=== PATIENT | female | born 1980 | race Caucasian/White ===

== ENCOUNTER 2017-08-11 16:24 | Emergency (ER) | payer OTHER ==
[~2017-08-11] VITALS: Ht 170.2 cm; Wt 81.5 kg
[~2017-08-11 16:24] MED LIST: AZIT-57 PO; [UNRECOGNIZED DRUG - OTHER]
[2017-08-11 16:30] VITALS: TEMP 36.4; Ht 170.2 cm; Wt 81.5 kg
[2017-08-11] MEDS ORDERED: PHEN10TA PO (16:48)
--- NOTE | 2017-08-11 16:51 | EMERGENCY ROOM VISIT NOTE ---
History First contact with patient: 16:33 Chief Complaint: HYPERTENSION Stated Complaint: HIGH BLOOD PRESSURE, DIZZY History of Present Illness The patient is a 36 year old female who presents to the Emergency Room with complaints of dizziness and high blood pressure. She felt dizzy at work one week prior. She works at [employer] and so went to medical and they took her blood pressure which was in the 140's/110's. They recommended she came to the ER due to her history of cardiomyopathy however she declined. That night she started having nasal congestion, cough, increasing fatigue, dizziness and ear itching. She went to urgent care 4 days ago and diagnosed with viral illness. She has been taking an OTC cold medication since then containing phenylephrine and acetaminophen. Today she again she was getting very dizzy at work so went to medical and her blood pressure was in the 160's/110's. She was advised again to come to the ER and on this occasion decided to come. Her dizziness is worse on standing and walking around, she does not get it with head movements while in bed. She feels it is more light headedness or loss of balance than the room spinning. She denies any fevers, rash or neck stiffness. She denies any head trauma She does note having a history of migraines and uses imitrex approximately once/ week on average. She has never had vertiginous migraines. She has not had a migraine with this recent dizziness. Mother has meniere's disease. No personal or family history of POTS. Her older sister (by 14 years) has high blood pressure. No heart disease at a young age. Review of Systems All systems reviewed and otherwise negative other than HPI Past Medical/Surgical History Medical Problems: (1) H/O peripartum cardiomyopathy (2) PSOC Surgical Problems: (1) H/O tubal ligation Family History Cancer Diabetes mellitus Heart disease Hypertension Mother - Meniere's disease Social History Smoking Status: Never Smoker Marital Status: single Housing Status: lives with family Occupation Status: employed Current/Historical Medications Scheduled PRN Meclizine HCl (Meclizine HCl), 1 TAB PO TID PRN for dizziness Physical Exam Vital Signs Date Time Temp Pulse Resp B/P (MAP) Pulse Ox O2 Delivery O2 Flow Rate FiO2 08/11/17 19:12 78 16 133/90 98 08/11/17 18:18 79 139/100 82 165/105 89 144/110 08/11/17 18:18 79 16 139/100 98 Room Air 08/11/17 17:31 95 08/11/17 16:30 36.4 84 16 156/108 99 Room Air Physical Exam General Appearance: WD/WN, no apparent distress Head: normocephalic, atraumatic Eyes: normal inspection, PERRL, EOMI ENT: normal ENT inspection, hearing grossly normal, TMs normal, pharynx normal Neck: supple, no JVD, trachea midline Respiratory/Chest: chest non-tender, lungs clear, normal breath sounds, no respiratory distress, no accessory muscle use Cardiovascular: regular rate, rhythm, no edema, no murmur, normal peripheral pulses Abdomen / GI: normal bowel sounds, non tender, soft Back: no CVA tenderness Extremities: no calf tenderness, normal capillary refill, no pedal edema 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 There is no pneumothorax, pleural effusion, focal airspace consolidation or overt pulmonary edema. The bones of the chest appear grossly intact. IMPRESSION: No acute process. The above report was generated using voice recognition software. It may contain grammatical, syntax or spelling errors. Electronically signed by: Uriel Chowdhury M.D. 08/11/2017 5:53 PM Dictated Date/Time: 08/11/2017 5:52 PM Laboratory Results 08/11/17 17:15 Red Blood Count 4.01, Mean Corpuscular Volume 91.3, Mean Corpuscular Hemoglobin 29.9, Mean Corpuscular Hemoglobin Concent 32.8, Mean Platelet Volume 9.2, Neutrophils (%) (Auto) 58.2, Lymphocytes (%) (Auto) 35.0, Monocytes (%) (Auto) 5.2, Eosinophils (%) (Auto) 1.4, Basophils (%) (Auto) 0.1, Neutrophils # (Auto) 5.34, Lymphocytes # (Auto) 3.21, Monocytes # (Auto) 0.48, Eosinophils # (Auto) 0.13, Basophils # (Auto) 0.01 08/11/17 17:15 Test 08/11/17 17:00 08/11/17 17:15 Urine Color YELLOW Urine Appearance CLOUDY (CLEAR) Urine pH 5.5 (4.5-7.5) Urine Specific [place] 1.014 (1.000-1.030) Urine Protein NEG (NEG) Urine Glucose (UA) NEG (NEG) Urine Ketones NEG (NEG) Urine Occult Blood NEG (NEG) Urine Nitrite NEG (NEG) Urine Bilirubin NEG (NEG) Urine Urobilinogen NEG (NEG) Urine Leukocyte Esterase TRACE (NEG) Urine WBC (Auto) 10-30 /hpf (0-5) Urine RBC (Auto) 0-4 /hpf (0-4) Urine Hyaline Casts (Auto) 0 /lpf (0-5) Urine Epithelial Cells (Auto) >30 /lpf (0-5) Urine Bacteria (Auto) 1+ (NEG) Urine Test NEG (NEG) White Blood Count 9.18 K/uL (4.8-10.8) Red Blood Count 4.01 M/uL (4.2-5.4) Hemoglobin 12.0 g/dL (12.0-16.0) Hematocrit 36.6 % (37-47) Mean Corpuscular Volume 91.3 fL (80-100) Mean Corpuscular Hemoglobin 29.9 pg (25-34) Mean Corpuscular Hemoglobin Concent 32.8 g/dl (32-36) Platelet Count 310 K/uL (130-400) Mean Platelet Volume 9.2 fL (7.4-10.4) Neutrophils (%) (Auto) 58.2 % Lymphocytes (%) (Auto) 35.0 % Monocytes (%) (Auto) 5.2 % Eosinophils (%) (Auto) 1.4 % Basophils (%) (Auto) 0.1 % Neutrophils # (Auto) 5.34 K/uL (1.4-6.5) Lymphocytes # (Auto) 3.21 K/uL (1.2-3.4) Monocytes # (Auto) 0.48 K/uL (0.11-0.59) Eosinophils # (Auto) 0.13 K/uL (0-0.5) Basophils # (Auto) 0.01 K/uL (0-0.2) RDW Standard Deviation 44.2 fL (36.4-46.3) RDW Coefficient of Variation 13.2 % (11.5-14.5) Immature Granulocyte % (Auto) 0.1 % Immature Granulocyte # (Auto) 0.01 K/uL (0.00-0.02) Anion Gap 7.0 mmol/L (3-11) Est Creatinine Clear Calc Drug Dose 126.2 ml/min Estimated GFR () 131.6 Estimated GFR (Non- 113.6 BUN/Creatinine Ratio 16.4 (10-20) Calcium Level 9.1 mg/dl (8.5-10.1) Total Bilirubin 0.2 mg/dl (0.2-1) Aspartate Amino Transf (AST/SGOT) 22 U/L (15-37) Alanine Aminotransferase (ALT/SGPT) 35 U/L (12-78) Alkaline Phosphatase 57 U/L (45-117) Troponin I < 0.015 ng/ml (0-0.045) Pro-B-Type Natriuretic Peptide 65 pg/ml (0-450) Total Protein 8.0 gm/dl (6.4-8.2) Albumin 3.9 gm/dl (3.4-5.0) Globulin 4.1 gm/dl (2.5-4.0) Albumin/Globulin Ratio 1.0 (0.9-2) Medications Administered Medications (Trade) Dose Ordered Sig/Marily Route Start Time Stop Time Status Last Admin Dose Admin Acetaminophen (Tylenol Tab) 650 mg NOW STAT PO 08/11/17 17:08 08/11/17 17:09 DC 08/11/17 17:27 650 MG Meclizine HCl (Antivert Tab) 25 mg NOW STAT PO 08/11/17 18:18 08/11/17 18:19 DC 08/11/17 18:27 25 MG ECG Indication: other Rate (beats per minute): 74 Rhythm: normal sinus Findings: no acute ischemic change Change: no significant change ED Course Complete history and physical was performed by myself The patient was discussed with Dr Tang who separately The patient was reassessed on multiple occasions and her dizziness appeared to improve after meclizine given Her labs and imaging were discussed with her and she was discharged in a stable condition. Medical Decision Prior records/ancillary studies reviewed. Triage Nursing notes reviewed. The patient's history was concerning for dizziness and vertigo. Differential diagnosis: Etiologies such as benign positional vertigo, dehydration, hypovolemia, anemia, tumor, infection, hypoglycemia, electrolyte abnormalities, cardiac sources, intracerebral event, toxicologic, neurologic, as well as others were entertained. Physical examination: As above. No pathologic nystagmus. ER treatment provided: IV hydration with normal saline, [] ml. [] On reassessment the patient felt well. Diagnostics interpretation by me: ECG: Normal sinus rhythm without ischemic change or evidence of dysrhythmia. The labs revealed a normal CBC and chemistry panel. [] Consultation: A consultation was placed with the [] hospitalist. The case was discussed and diagnostics were reviewed. The patient was evaluated in the ER for further treatment. It appears the patient had an episode of dizziness. By the evaluation outlined above emergent etiologies such as infection, hypoglycemia, electrolyte abnormalities, cardiac sources, intracerebral event, toxicologic, neurologic,as well as others were deemed relatively unlikely. Her blood pressure was not elevated significantly to account for her dizziness and there was no end organ damage noted on labs or urine therefore no acute antihypertensive therapy was deemed necessary. She has a history of cardiomyopathy but her recent history and clear CXR are no suggestive of heart failure. She was not orthostatic. She describes more vaso-vagal presyncope rather than vertigo but positive response to meclizine supports a diagnosis of a peripheral vertigo. Given intermittent nature would favor BPPV over vestibular labyrinthitis although her symptoms could not be reproduced in the ER with Darlin-Hallpike. She does not have any focal neurology to suggest central vertigo and with her history of a migraines a central vertigo in any case would most likely be related to her migraines. The patient informed about the findings as listed above. All questions were answered and she was pleased with the treatment and management plan. Return instructions were outlined and the patient was discharged in stable condition. Outpatient prescription management: Meclizine Referral: The patient was referred back to their primary care physician for follow-up in 2 to 3 days for a recheck of the current condition and recheck of her blood pressure. Medication Reconcilliation Current Medication List: was personally reviewed by me Blood Pressure Screening Blood pressure disposition: Referred to PCP Impression Primary Impression: Dizziness Additional Impressions: Hypokalemia Hypertension Departure Information Dispostion Home / Self-Care Condition GOOD Prescriptions Meclizine HCl (Meclizine HCl) 12.5 Mg Tab 1 TAB PO TID Y for dizziness for 30 Days, #15 TAB 3 Refills Prov: Bhavin Wood MD 08/11/17 Referrals Zander Chase M.D.([facility]) (PCP) Patient Instructions My [facility] Additional Instructions You were seen in the ER for dizziness and high blood pressure. Recommend stop taking phenylephrine (Sudafed) as this can raise your blood pressure and follow up with your primary care physician for a repeat blood pressure check. With regards to your dizziness - no specific cause was found on lab tests and imaging in the ER today. You were given meclizine (Antivert) which may have helped and you should try taking this as required when you get your dizziness again. Please follow up with your primary care provider regarding this in addition as other possible causes include your migraine attacks. Please return to the ER if worsening dizziness and nausea not resolved with meclizine, balance problems, moderate to severe headache or vision changes. Resident Tracking Resident Involvement: Resident Care Provided Care Provided: Adult ED Problem Qualifiers Additional Impressions: Hypertension Hypertension type: essential hypertension Qualified Codes: I10 - Essential ( primary) hypertension
[2017-08-11] MEDS ORDERED: ACETAMINOPHEN 325 MG TAB PO STA (17:08)
[2017-08-11 17:29] LABS: BASO % 0.1 %; BASO ABS # 0.01 K/uL (0-0.2); COMPLETE YES; EOS % 1.4 %; HEMATOCRIT 36.6 % (37-47); IG% 0.1 %; LYMPH ABS # 3.21 K/uL (1.2-3.4); MEAN CELL VOLUME 91.3 fL (80-100); MEAN CORPUSCULAR HEMOGLOBIN 29.9 pg (25-34); MEAN CORPUSCULAR HGB CONC 32.8 g/dl (32-36); MEAN PLATELET VOLUME 9.2 fL (7.4-10.4); MONO % 5.2 %; NEUT % 58.2 %; PLATELET COUNT 310 K/uL (130-400); RED BLOOD COUNT 4.01 M/uL (4.2-5.4); WHITE BLOOD COUNT 9.18 K/uL (4.8-10.8)
[2017-08-11 17:33] LABS: URINE APPEARANCE CLOUDY (CLEAR); URINE BILIRUBIN NEG (NEG); URINE COLOR YELLOW; URINE EPITHELIAL CELL AUTO >30 /lpf (0-5); URINE NITRITE NEG (NEG); URINE PH 5.5 (4.5-7.5); URINE SPECIFIC GRAVITY 1.014 (1.000-1.030); UROBILINOGEN NEG (NEG); ZZUR CULT IF INDIC CLEAN CATCH YES
[2017-08-11 17:36] LABS: MANUAL MICROSCOPIC REQUIRED? NO; REVIEW REQ? NO
[2017-08-11 17:46] LABS: ALT/SGPT 35 U/L (12-78); BLOOD UREA NITROGEN 11 mg/dl (7-18); BUN/CREATININE RATIO 16.4 (10-20); CALCIUM 9.1 mg/dl (8.5-10.1); CARBON DIOXIDE 27 mmol/L (21-32); CHLORIDE 103 mmol/L (98-107); CREATININE 0.69 mg/dl (0.60-1.20); GLUCOSE 100 mg/dl (70-99); POTASSIUM 3.3 mmol/L (3.5-5.1); SODIUM 137 mmol/L (136-145)
[2017-08-11 17:51] LABS: ALKALINE PHOSPHATASE 57 U/L (45-117); AST/SGOT 22 U/L (15-37)
--- NOTE | 2017-08-11 17:54 | DIAGNOSTIC IMAGING REPORT ---
CHEST 2 VIEWS ROUTINE HISTORY: 36 years-old Female shortness of breath, dizzy acute shortness of breath COMPARISON: Chest radiograph 05/12/2016 TECHNIQUE: PA and lateral views of the chest FINDINGS: Cardiomediastinal and hilar silhouettes are within normal limits. There is no pneumothorax, pleural effusion, focal airspace consolidation or overt pulmonary edema. The bones of the chest appear grossly intact. IMPRESSION: No acute process. The above report was generated using voice recognition software. It may contain grammatical, syntax or spelling errors. Electronically signed by: Uriel Chowdhury M.D. 08/11/2017 5:53 PM Dictated Date/Time: 08/11/2017 5:52 PM
[2017-08-11] MEDS ORDERED: MECLIZINE HCL 25 MG TAB PO STA (18:18)
[2017-08-11] MEDS ORDERED: MECL1TAB40 PO (19:10)
[2017-08-11 19:12] VITALS: BP 133/90; PULSE 78; O2SAT 98
--- NOTE | 2017-08-11 21:17 | EMERGENCY ROOM VISIT NOTE ---
History Report prepared by Nicholas: Susana Tom Under the Supervision of: Dr. Reinaldo Tang M.D. First contact with patient: 16:33 Chief Complaint: HYPERTENSION Stated Complaint: HIGH BLOOD PRESSURE, DIZZY History of Present Illness The patient is a 36 year old female who presents to the Emergency Room with complaints of constant dizziness beginning 1 week ago. The patient states that she works at [employer] and felt dizzy at work last week. She reports that she went to medical and her blood pressure was noted to be 140/110 and advised to come to the ED but did not. She notes that over the last week she has had congestion, cough, fatigue, dizziness, and ear itching. The patient was seen 4 days ago at urgent care and has been taking Sudafed and ibuprofen for a diagnosed viral illness. She notes that today she was seen at medical at work and was told to come into the ED for high blood pressure. Pt denies LOC, headache, fevers, chills, diaphoresis, visual changes, neck pain, chest pain, breathing difficulties, nausea, vomiting, abdominal pain, back pain, melena, hematochezia, urinary symptoms, numbness, weakness, lymphadenopathy, rash, or other complaints. Source of History: patient Onset: 1 week ago Position: other (global) Quality: other (dizziness) Timing: constant Associated Symptoms: + cough Note: She notes that over the last week she has had congestion, fatigue, dizziness, and ear itching. Review of Systems See HPI for pertinent positives and negatives. A total of ten systems were reviewed and were otherwise negative. Past Medical & Surgical Medical Problems: (1) H/O peripartum cardiomyopathy (2) PSOC Surgical Problems: (1) H/O tubal ligation Family History Cancer Diabetes mellitus Heart disease Hypertension Social History Smoking Status: Never Smoker Marital Status: single Housing Status: lives with family Occupation Status: employed Current/Historical Medications Scheduled PRN Meclizine HCl (Meclizine HCl), 1 TAB PO TID PRN for dizziness Allergies Coded Allergies: Latex1 -Allergic Contact Dermititis (Verified Allergy, Unknown, 05/12/16) Penicillins (Verified Allergy, Unknown, 05/12/16) Physical Exam Vital Signs Date Time Temp Pulse Resp B/P (MAP) Pulse Ox O2 Delivery O2 Flow Rate FiO2 08/11/17 19:12 78 16 133/90 98 08/11/17 18:18 79 139/100 82 165/105 89 144/110 08/11/17 18:18 79 16 139/100 98 Room Air 08/11/17 17:31 95 08/11/17 16:30 36.4 84 16 156/108 99 Room Air Physical Exam GENERAL: Awake, alert, well appearing, no distress HENT: Normocephalic, atraumatic. TM's normal. Oropharynx unremarkable. EYES: PERRL. EOMI. Normal conjunctiva. Sclera non-icteric. NECK: Supple. No nuchal rigidity. FROM. No JVD or bruit. RESPIRATORY: CTA CARDIAC: RRR. No murmur. ABDOMEN: Soft, non distended. No tenderness to palpation. No rebound or guarding. No masses. RECTAL: Deferred. MUSCULOSKELETAL: Unremarkable. No edema. No discoloration. Gross motor strength symmetric. NEURO: Cranial nerves 2-12 grossly intact. Normal sensorium. No sensory or motor deficits noted. Speech normal. No pronator drift. Gait normal. Negative rhomberg. Normal heel to trinh and finger to nose. No ana. SKIN: No rash or jaundice noted. LYMPH: No adenopathy. Medical Decision & Procedures ER Provider Diagnostic Interpretation: Radiology results as stated below per my review and radiologist interpretation: CHEST 2 VIEWS ROUTINE FINDINGS: Cardiomediastinal and hilar silhouettes are within normal limits. There is no pneumothorax, pleural effusion, focal airspace consolidation or overt pulmonary edema. The bones of the chest appear grossly intact. IMPRESSION: No acute process. The above report was generated using voice recognition software. It may contain grammatical, syntax or spelling errors. Electronically signed by: Uriel Chowdhury M.D. 08/11/2017 5:53 PM Dictated Date/Time: 08/11/2017 5:52 PM Laboratory Results 08/11/17 17:15 Red Blood Count 4.01, Mean Corpuscular Volume 91.3, Mean Corpuscular Hemoglobin 29.9, Mean Corpuscular Hemoglobin Concent 32.8, Mean Platelet Volume 9.2, Neutrophils (%) (Auto) 58.2, Lymphocytes (%) (Auto) 35.0, Monocytes (%) (Auto) 5.2, Eosinophils (%) (Auto) 1.4, Basophils (%) (Auto) 0.1, Neutrophils # (Auto) 5.34, Lymphocytes # (Auto) 3.21, Monocytes # (Auto) 0.48, Eosinophils # (Auto) 0.13, Basophils # (Auto) 0.01 08/11/17 17:15 Test 08/11/17 17:00 08/11/17 17:15 Urine Color YELLOW Urine Appearance CLOUDY (CLEAR) Urine pH 5.5 (4.5-7.5) Urine Specific [place] 1.014 (1.000-1.030) Urine Protein NEG (NEG) Urine Glucose (UA) NEG (NEG) Urine Ketones NEG (NEG) Urine Occult Blood NEG (NEG) Urine Nitrite NEG (NEG) Urine Bilirubin NEG (NEG) Urine Urobilinogen NEG (NEG) Urine Leukocyte Esterase TRACE (NEG) Urine WBC (Auto) 10-30 /hpf (0-5) Urine RBC (Auto) 0-4 /hpf (0-4) Urine Hyaline Casts (Auto) 0 /lpf (0-5) Urine Epithelial Cells (Auto) >30 /lpf (0-5) Urine Bacteria (Auto) 1+ (NEG) Urine Test NEG (NEG) White Blood Count 9.18 K/uL (4.8-10.8) Red Blood Count 4.01 M/uL (4.2-5.4) Hemoglobin 12.0 g/dL (12.0-16.0) Hematocrit 36.6 % (37-47) Mean Corpuscular Volume 91.3 fL (80-100) Mean Corpuscular Hemoglobin 29.9 pg (25-34) Mean Corpuscular Hemoglobin Concent 32.8 g/dl (32-36) Platelet Count 310 K/uL (130-400) Mean Platelet Volume 9.2 fL (7.4-10.4) Neutrophils (%) (Auto) 58.2 % Lymphocytes (%) (Auto) 35.0 % Monocytes (%) (Auto) 5.2 % Eosinophils (%) (Auto) 1.4 % Basophils (%) (Auto) 0.1 % Neutrophils # (Auto) 5.34 K/uL (1.4-6.5) Lymphocytes # (Auto) 3.21 K/uL (1.2-3.4) Monocytes # (Auto) 0.48 K/uL (0.11-0.59) Eosinophils # (Auto) 0.13 K/uL (0-0.5) Basophils # (Auto) 0.01 K/uL (0-0.2) RDW Standard Deviation 44.2 fL (36.4-46.3) RDW Coefficient of Variation 13.2 % (11.5-14.5) Immature Granulocyte % (Auto) 0.1 % Immature Granulocyte # (Auto) 0.01 K/uL (0.00-0.02) Anion Gap 7.0 mmol/L (3-11) Est Creatinine Clear Calc Drug Dose 126.2 ml/min Estimated GFR () 131.6 Estimated GFR (Non- 113.6 BUN/Creatinine Ratio 16.4 (10-20) Calcium Level 9.1 mg/dl (8.5-10.1) Total Bilirubin 0.2 mg/dl (0.2-1) Aspartate Amino Transf (AST/SGOT) 22 U/L (15-37) Alanine Aminotransferase (ALT/SGPT) 35 U/L (12-78) Alkaline Phosphatase 57 U/L (45-117) Troponin I < 0.015 ng/ml (0-0.045) Pro-B-Type Natriuretic Peptide 65 pg/ml (0-450) Total Protein 8.0 gm/dl (6.4-8.2) Albumin 3.9 gm/dl (3.4-5.0) Globulin 4.1 gm/dl (2.5-4.0) Albumin/Globulin Ratio 1.0 (0.9-2) Laboratory results reviewed by me Medications Administered Medications (Trade) Dose Ordered Sig/Marily Route Start Time Stop Time Status Last Admin Dose Admin Acetaminophen (Tylenol Tab) 650 mg NOW STAT PO 08/11/17 17:08 08/11/17 17:09 DC 08/11/17 17:27 650 MG Meclizine HCl (Antivert Tab) 25 mg NOW STAT PO 08/11/17 18:18 08/11/17 18:19 DC 08/11/17 18:27 25 MG ECG Indication: other (htn) Rate (beats per minute): 74 Rhythm: normal sinus Findings: no acute ischemic change, no ectopy ED Course 1633: The patient was evaluated in room C7. A complete history and physical exam was performed. 1708: Tylenol Tab 650mg PO. 1818: Antivert Tab 25mg PO. 1900: I reevaluated and updated the patient. 1911: I reevaluated the patient. Discussed results and discharge instructions: She verbalized understanding and agreement. The patient is ready for discharge. Medical Decision Triage Nursing notes reviewed. The patient's presentation and history were concerning for dizziness and hypertension although by history the patient describes it more as a feeling of lightheadedness and slightly off balance. She denies any significant issues walking or standing. She doesn't fall to the side or stumble. She denies any vertiginous or movement like issues. Etiologies such as benign positional vertigo, tumor, infection, hypoglycemia, electrolyte abnormalities, cardiac sources, intracerebral event, toxicologic, neurologic, as well as others were entertained. The patient was evaluated. Physical examination was performed as above and was completely normal. She can ambulate without difficulty. She has 0 neurologic findings. She has no nystagmus. HINTs examination is normal. The patient clinically looks well. She had hypertension. She was not orthostatic. She was given a dose of meclizine initially and seemed to be doing very well with this despite the lack of movement related issues. She was taking a decongestant for her symptoms and has really minimal congestion at this time. This could be affecting her blood pressure. Since she has a completely normal examination, no headache, no fever or findings that are worrisome on physical advanced neuro imaging was felt to be unnecessary. Her laboratory testing was rather unremarkable. She does not have urinary symptoms and she had moderate epithelial cells on her urinalysis. Conservative management was discussed with close follow-up due to the elevated blood pressure. The patient felt comfortable with the plan. She worsens in any way she will be back for additional evaluation and testing. I gave my usual and customary discussion regarding this issue. The patient was seen and examined with Dr Wood, resident physician. We discussed the case and treatments ordered, reviewed the results, and determine the disposition. Please refer to the resident's note for additional details. I have been directly involved with the management and disposition as well as independently evaluated the patient as documented in this note. By the evaluation outlined above other emergent etiologies such as those listed in the differential, as well as others, were deemed relatively unlikely. The patient was educated about the findings as listed above. All questions were answered and the patient was pleased with the treatment. Return instructions were outlined and the patient was discharged in stable condition. The patient was referred to her PCP for follow-up for a recheck of the current condition. Medication Reconcilliation Current Medication List: was personally reviewed by me Blood Pressure Screening Patient's blood pressure: Elevated blood pressure Blood pressure disposition: Elevated BP felt to be situational Impression Primary Impression: HTN (hypertension) Additional Impression: Lightheadedness Scribe Attestation The scribe's documentation has been prepared under my direction and personally reviewed by me in its entirety. I confirm that the note above accurately reflects all work, treatment, procedures, and medical decision making performed by me. Departure Information Dispostion Home / Self-Care Prescriptions Meclizine HCl (Meclizine HCl) 12.5 Mg Tab 1 TAB PO TID Y for dizziness for 30 Days, #15 TAB 3 Refills Prov: Bhavin Wood MD 08/11/17 Referrals Zander Chase M.D. ([facility]) (PCP) Patient Instructions My [facility] Additional Instructions You were seen in the ER for dizziness and high blood pressure. Recommend stop taking phenylephrine (Sudafed) as this can raise your blood pressure and follow up with your primary care physician for a repeat blood pressure check. With regards to your dizziness - no specific cause was found on lab tests and imaging in the ER today. You were given meclizine (Antivert) which may have helped and you should try taking this as required when you get your dizziness again. Please follow up with your primary care provider regarding this in addition as other possible causes include your migraine attacks. Please return to the ER if worsening dizziness and nausea not resolved with meclizine, balance problems, moderate to severe headache or vision changes. Problem Qualifiers
== END 2017-08-11 19:13 | disposition home or self-care (01) ==
LOC: C.EDB 16:26 → C.EDC 19:13
DX: R42 Dizziness and giddiness (principal); E87.6 Hypokalemia; I10 Essential (primary) hypertension; Z98.51 Tubal ligation status; Z83.3 Family history of diabetes mellitus; Z82.49 Family history of ischemic heart disease and other diseases of the circulatory system